=== PATIENT | male | born 1955 | race Caucasian/White ===

== ENCOUNTER 2019-12-13 08:17 | Outpatient (CLI) | payer OTHER | END 2019-12-13 08:26 | disposition home or self-care (01) | LOC: RAD 08:17 | PROVIDERS: ATTEND Urology | DX: N20.0 Calculus of kidney (principal) ==

== ENCOUNTER → 2021-06-01 | Outpatient (CLI) | payer OTHER | END | disposition home or self-care (01) | LOC: RAD 09:25 | PROVIDERS: ATTEND Urology | DX: N20.0 Calculus of kidney (principal) ==

== ENCOUNTER 2023-03-11 11:53 | Outpatient (CLI) | payer OTHER | END 2023-03-11 11:56 | disposition home or self-care (01) | LOC: RAD 11:53 | PROVIDERS: ATTEND Urology | DX: N20.0 Calculus of kidney (principal) ==

== ENCOUNTER 2023-04-20 10:42 | Outpatient (CLI) | payer OTHER | END 2023-04-20 10:50 | disposition home or self-care (01) | LOC: TOM 10:42 | PROVIDERS: ATTEND Urology | DX: N20.0 Calculus of kidney (principal); N20.1 Calculus of ureter ==